=== PATIENT | male | born 1980 | race Caucasian/White ===

== ENCOUNTER 2019-05-25 11:50 | Emergency (ER) | payer BC ==
[2019-05-25 13:09] VITALS: BP 161/95
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
[2019-05-25 18:45] LABS: HIV 4th Generation Nonreactive (Nonreactive)
[2019-05-27 13:41] LABS: Chlamydia trachomatis NAA Negative (Negative); Neisseria gonorrhoeae (GC) NAA Negative (Negative)
== END 2019-05-25 14:04 | disposition home or self-care (01) ==
LOC: UCCORT 11:50
DX: Z11.3 Encounter for screening for infections with a predominantly sexual mode of transmission (principal); F17.210 Nicotine dependence, cigarettes, uncomplicated; Z88.2 Allergy status to sulfonamides
CPT/HCPCS: 36415; 86780; 87389; 87491; 87591; 99201; G0463